=== PATIENT | female | born 1985 | race Hispanic/Latino ===

== ENCOUNTER 2021-10-19 19:14 | Emergency (ER) | payer BC ==
[~2021-10-19] VITALS: Ht 167.6 cm; Wt 140.6 kg
[2021-10-19] MEDS ORDERED: NEOSPORIN OIN28.3 GM TOP (20:02)
[2021-10-19] MEDS ORDERED: BACTRIM DS TAB1 EACH PO (20:02)
== END 2021-10-19 20:20 | disposition home or self-care (01) ==
LOC: FSED 19:33
DX: L25.9 Unspecified contact dermatitis, unspecified cause (principal)
CPT/HCPCS: 99282